=== PATIENT | male | born 1955 | race Caucasian/White ===

== ENCOUNTER 2018-11-16 08:58 | Inpatient (IN) | payer BC, OTHER ==
[2018-11-16] MEDS ORDERED: dilTIAZem HCL 125 MG/25 ML - 25 ML VIAL ONE ×2 (09:10→13:16)
--- NOTE | 2018-11-16 09:12 | PDOC ---
History of Present Illness <MarleeMariselaasher Chris - Last Filed: 11/16/18 12:34> - General History Source: Patient, EMS Exam Limitations: No Limitations - History of Present Illness Initial Comments: 11/16/18 09:35 63 year old male with PMH HTN, HLD, CAD (4 stents x15 years ago), DM BIBA to ED for acute SOB since this AM. Pt reported took his blood pressure medications this AM, but prior had not taken his blood pressure medications for x2 days, because "I was tired of taking them". Pt denied chest pain, fever, cough, lower extremity swelling. Pt was given 3 Nitro SL en route by EMS. <Josee Santacruz - Last Filed: 11/16/18 15:59> - General Stated Complaint: CHEST PAIN Time Seen by Provider: 11/16/18 09:11 Past History <Marisela Whalen - Last Filed: 11/16/18 12:34> <Josee Santacruz - Last Filed: 11/16/18 15:59> - Past Medical History Allergies/Adverse Reactions: Allergies Allergy/AdvReac Type Severity Reaction Status Date / Time No Known Allergies Allergy Verified 11/16/18 09:22 Home Medications: Ambulatory Orders Aspirin 81 mg PO DAILY 11/16/18 Clopidogrel Bisulfate [Plavix] 75 mg PO DAILY 11/16/18 Insulin Glargine,Hum.rec.anlog [Tou[place]nadette Solostar] 30 unit SQ DAILY 11/16/18 Olmesartan Medoxomil 5 mg PO DAILY 11/16/18 Rosuvastatin [Crestor -] 40 mg PO DAILY 11/16/18 Semaglutide [Ozempic] 0.5 mg SQ WEEKLY 11/16/18 metFORMIN HCL [Metformin HCl] 500 mg PO QID 11/16/18 Review of Systems - Review of Systems Able to Perform ROS?: Yes Comments:: 11/16/18 09:58 General: denied fever, chills, generalized weakness. HEENT: denied sore throat, rhinorrhea, ear pain. Heart: denied chest pain, palpitations, syncope, diaphoresis. Respiratory: admitted to shortness of breath. denied cough, sputum production, hemoptysis. Abdomen: denied abdominal pain, nausea, vomiting, diarrhea, constipation, blood in stool. : denied dysuria, increased urinary frequency, hematuria, urinary incontinence , flank pain. Back: denied back pain. Musculoskeletal: denied joint pain, muscle pain, joint swelling. Neurological: denied headache, dizziness, numbness, tingling, weakness. Skin: denied rash, laceration, abrasion. <Josee Santacruz - Last Filed: 11/16/18 15:59> *Physical Exam - Vital Signs Last Vital Signs Temp Pulse Resp BP Pulse Ox 97 F L 115 H 35 H 121/75 96 11/16/18 11:31 11/16/18 09:31 11/16/18 09:31 11/16/18 09:31 11/16/18 09:31 <Marisela Whalen - Last Filed: 11/16/18 12:34> - Physical Exam Comments: Constitutional: Well-nourished, Well-developed, appearing stated age. HEENT: head is normocephalic, atraumatic. EOMI. PERRLA. Neck: supple. Full ROM. Heart: regular rhythm. no murmurs, rubs or gallops. Lungs: bilateral breath sounds. bibasilar wheezing/crackles. increased work of breathing. no stridor. Abdomen: soft, nontender. normal bowel sounds. no rebound, guarding, masses. Extremities: peripheral pulses intact. no lower extremity edema. Neurological: CN 2-12 grossly intact. moves all four extremities. Psych: awake, alert, oriented x3. follows commands. answers questions appropriately. <Josee Santacruz - Last Filed: 11/16/18 15:59> ED Treatment Course - LABORATORY CBC & Chemistry Diagram: 11/16/18 09:19 11/16/18 09:19 - ADDITIONAL ORDERS Additional order review: Laboratory Results 11/16/18 11/16/18 11/16/18 11:30 10:20 09:19 PT with INR INR PTT (Actin FS) Anticoagulation Therapy No Result Required. Puncture Site Left radial ABG pH 7.36 ABG pCO2 at Pt Temp 47.4 H ABG pO2 at Pt Temp 157 H ABG HCO3 26.7 ABG O2 Sat (Measured) 99.5 H ABG O2 Content 20.3 ABG Base Excess 1.3 Greg Test Positive VBG pH 7.27 L POC VBG pCO2 64.9 H POC VBG pO2 50.5 H VBG HCO3 28.5 VBG O2 Sat (Mayte) 79.6 VBG Base Excess 0.1 Carboxyhemoglobin 1.3 Methemoglobin 0.3 O2 Delivery Device No Result Required. Oxygen Flow Rate No Vent Mode No Result Required. Vent Rate No Result Required. Mechanical Rate No Result Required. Pressure Support Vent No Result Required. Sodium Potassium Chloride Carbon Dioxide Anion Gap BUN Creatinine Est GFR (CKD-EPI)AfAm Est GFR (CKD-EPI)NonAf Random Glucose Lactic Acid 1.8 Calcium Magnesium Total Bilirubin AST ALT Alkaline Phosphatase Troponin I B-Natriuretic Peptide Total Protein Albumin TSH 11/16/18 11/16/18 09:19 09:19 PT with INR 11.20 INR 0.95 PTT (Actin FS) 29.2 Anticoagulation Therapy Puncture Site ABG pH ABG pCO2 at Pt Temp ABG pO2 at Pt Temp ABG HCO3 ABG O2 Sat (Measured) ABG O2 Content ABG Base Excess Greg Test VBG pH POC VBG pCO2 POC VBG pO2 VBG HCO3 VBG O2 Sat (Mayte) VBG Base Excess Carboxyhemoglobin Methemoglobin O2 Delivery Device Oxygen Flow Rate Vent Mode Vent Rate Mechanical Rate Pressure Support Vent Sodium 136 Potassium 4.2 Chloride 102 Carbon Dioxide 30 Anion Gap 4 L BUN 14.1 Creatinine 1.1 Est GFR (CKD-EPI)AfAm 81.79 Est GFR (CKD-EPI)NonAf 70.57 Random Glucose 328 H* Lactic Acid Calcium 9.0 Magnesium 2.1 Total Bilirubin 0.3 AST 29 ALT 56 Alkaline Phosphatase 152 H Troponin I < 0.02 B-Natriuretic Peptide 363.6 H Total Protein 7.5 Albumin 3.8 TSH 1.15 11/16/18 09:19 RBC 4.87 MCV 88.7 MCHC 33.4 RDW 13.8 MPV 9.5 Neutrophils % 77.6 Lymphocytes % 13.0 Monocytes % 7.4 Eosinophils % 1.6 Basophils % 0.4 - Medications Given in the ED: ED Medications Discontinued Medications Generic Name Dose Route Start Last Admin Trade Name Freq PRN Reason Stop Dose Admin Acetaminophen 1,000 mg 11/16/18 11:00 11/16/18 11:37 Ofirmev Injection - IVPB 11/16/18 11:01 1,000 mg ONCE ONE Administration Aspirin 162 mg 11/16/18 09:37 11/16/18 09:45 Asa - PO 11/16/18 09:38 Not Given ONCE ONE Diltiazem HCl 20 mg 11/16/18 09:13 11/16/18 09:22 Cardizem Injection - IVPUSH 11/16/18 09:14 20 mg ONCE ONE Administration Diltiazem HCl 60 mg 11/16/18 11:36 11/16/18 12:08 Cardizem - PO 11/16/18 11:37 60 mg ONCE ONE Administration Sodium Chloride 1,000 mls @ 1,000 mls/hr 11/16/18 11:01 11/16/18 11:08 Normal Saline - IV 11/16/18 12:00 1,000 mls/hr ASDIR STA Administration Ceftriaxone Sodium 1 gm/ 100 mls @ 200 mls/hr 11/16/18 11:03 11/16/18 12:00 Dextrose IVPB 11/16/18 11:32 200 mls/hr ONCE ONE Administration <Marisela Whalen - Last Filed: 11/16/18 12:34> - LABORATORY CBC & Chemistry Diagram: 11/16/18 09:19 11/16/18 09:19 <Josee Santacruz - Last Filed: 11/16/18 15:59> Medical Decision Making - Medical Decision Making 11/16/18 09:38 63 year old male with above PMH BIBA to ED for acute shortness of breath/hypoxia /tachycardia/hypertension. Pt was given SL Nitro X3. Initial Vital Signs Temp Pulse Resp BP Pulse Ox 97.4 F L 140 H 32 H 155/110 H 98 11/16/18 09:14 11/16/18 09:14 11/16/18 09:14 11/16/18 09:14 11/16/18 09:14 Afebrile. Tachycardic. Tachypnea. Hypertensive. No hypoxia on room air. EKG performed at 0900: rate 159, irregularly irregular rhythm, normal axis, inferior flipped Ts. No prior to compare. Pt was given Diltiazem 20 mg IV once. Vital Signs Temperature 97.4 F L 11/16/18 09:14 Pulse Rate 115 H 11/16/18 09:31 Respiratory Rate 35 H 11/16/18 09:31 Blood Pressure 121/75 11/16/18 09:31 O2 Sat by Pulse Oximetry (%) 96 11/16/18 09:31 Tachycardia improved. Work of breathing improved. Hypertension improved. BIPAP held for now. Labs ordered: CBC, CMP, TSH, troponin, BNP, coags Imaging ordered: CXR, CTA chest Medications ordered: ASA 162 mg PO chew once 11/16/18 09:54 CBC WBC 11.0 K/mm3 (4.0-10.0) H 11/16/18 09:19 RBC 4.87 M/mm3 (4.00-5.60) 11/16/18 09:19 Hgb 14.4 GM/dL (11.7-16.9) 11/16/18 09:19 Hct 43.2 % (35.4-49) 11/16/18 09:19 MCV 88.7 fl (80-96) 11/16/18 09:19 MCH 29.6 pg (25.7-33.7) 11/16/18 09:19 MCHC 33.4 g/dl (32.0-35.9) 11/16/18 09:19 RDW 13.8 % (11.9-15.9) 11/16/18 09:19 Plt Count 229 K/MM3 (134-434) 11/16/18 09:19 MPV 9.5 fl (7.5-11.1) 11/16/18 09:19 Absolute Neuts (auto) 8.5 K/mm3 (1.5-8.0) H 11/16/18 09:19 Neutrophils % 77.6 % (42.8-82.8) 11/16/18 09:19 Lymphocytes % 13.0 % (8-40) 11/16/18 09:19 Monocytes % 7.4 % (3.8-10.2) 11/16/18 09:19 Eosinophils % 1.6 % (0-4.5) 11/16/18 09:19 Basophils % 0.4 % (0-2.0) 11/16/18 09:19 Nucleated RBC % 0 % (0-0) 11/16/18 09:19 Leukocytosis with left shift. No anemia. VBG pH - 7.27 CO2 - 64.9 PO2 - 50.5 Respiratory acidosis. Labs ordered: ABG 11/16/18 09:57 Pt reassessed, work of breathing decreased. 11/16/18 10:23 CMP Sodium 136 mmol/L (136-145) 11/16/18 09:19 Potassium 4.2 mmol/L (3.5-5.1) 11/16/18 09:19 Chloride 102 mmol/L (98-107) 11/16/18 09:19 Carbon Dioxide 30 mmol/L (21-32) 11/16/18 09:19 Anion Gap 4 MMOL/L (8-16) L 11/16/18 09:19 BUN 14.1 mg/dL (7-18) 11/16/18 09:19 Creatinine 1.1 mg/dL (0.55-1.3) 11/16/18 09:19 Est GFR (CKD-EPI)AfAm 81.79 11/16/18 09:19 Est GFR (CKD-EPI)NonAf 70.57 11/16/18 09:19 Calcium 9.0 mg/dL (8.5-10.1) 11/16/18 09:19 Magnesium 2.1 mg/dL (1.8-2.4) 11/16/18 09:19 Total Bilirubin 0.3 mg/dL (0.2-1) 11/16/18 09:19 AST 29 U/L (15-37) 11/16/18 09:19 ALT 56 U/L (13-61) 11/16/18 09:19 Alkaline Phosphatase 152 U/L (45-117) H 11/16/18 09:19 Troponin I < 0.02 ng/ml (0.00-0.05) 11/16/18 09:19 B-Natriuretic Peptide 363.6 pg/ml (5-125) H 11/16/18 09:19 Total Protein 7.5 g/dl (6.4-8.2) 11/16/18 09:19 Albumin 3.8 g/dl (3.4-5.0) 11/16/18 09:19 TSH 1.15 uIU/ml (0.358-3.74) 11/16/18 09:19 No electrolyte abnormalities. No FREDDIE. No transamintiis. Troponin wnl Mild BNP elevation TSH wnl 11/16/18 10:[address] 11/16/18 10:37 ABG Results ABG pH 7.36 (7.35-7.45) 11/16/18 10:20 ABG pCO2 at Pt Temp 47.4 mmHg (35-45) H 11/16/18 10:20 ABG pO2 at Pt Temp 157 mmHg (80-105) H 11/16/18 10:20 ABG HCO3 26.7 mmol/L (22-27) 11/16/18 10:20 ABG O2 Sat (Measured) 99.5 % (95-98) H 11/16/18 10:20 ABG O2 Content 20.3 % vol (15-22) 11/16/18 10:20 ABG Base Excess 1.3 meq/l (-2-2) 11/16/18 10:20 No acidosis. 11/16/18 10:38 CXR report: EXAM#: TYPE/EXAM: RESULT: [id number] RAD/CHEST X-RAY PORTABLE* Chest : Hypoxia. Shortness of breath There are no prior studies for comparison. A single view of the chest reveals an elevated hemidiaphragm with right base atelectasis. There is a large heart with some prominence of central markings. The left lung is clear. The bones appear intact and the soft tissues are excessive. Correlation recommended. Reported By: Jules Bob MD 11/16/18 0950 11/16/18 11:13 CTA chest shows RLL pneumonia. -Pending official report Medications ordered: tylenol IV, normal saline 1000 cc bolus, Azithromyucin 500 mg IV once, Ceftriaxone 1g IV once Labs ordered: blood cultures 11/16/18 12:02 CTA chest report: [id number] CT/CHEST CTA Clinical history: Shortness of breath, hypoxia and tachycardia. Rule out pulmonary emboli in 63-year -old man. Comparison: Chest x-ray earlier today. Contiguous transaxial images were obtained from the lung apices to the bases with windows obtained for mediastinal and lung parenchymal detail. 3-D reconstructions were performed. No emboli were seen. No IV contrast was utilized. Sagittal and coronal reconstructions were performed. Mediastinum: Cardiomegaly with multichamber cardiac enlargement and elevated right diaphragm. Small mediastinal nodes. Mildly prominent hilar nodes. Suggest follow-up. Coronary artery calcification. Small pleural effusions. Lungs: Mild congestion with fissural thickening. Small infiltrates or atelectasis at the bases.. Bone: Osteopenia and degenerative changes. Cursory scanning of the upper abdomen: Small left renal cyst and accessory spleen. Small hiatal hernia. Impression: No emboli seen. Probable congestive changes with small effusions and fissural thickening. Other findings as above. Clinical correlation advised. Reported By: Jules Teran MD 11/16/18 1134 Pt still has wheezing at bases Medications ordered: duonebx1, diltiazem 125 mg PO once 11/16/18 12:17 Pt reported increased SOB and diaphoresis. Vital Signs Temperature 97 F L 11/16/18 11:31 Pulse Rate 112 H 11/16/18 12:14 Respiratory Rate 36 H 11/16/18 12:14 Blood Pressure 223/117 H 11/16/18 12:14 O2 Sat by Pulse Oximetry (%) 88 L 11/16/18 12:14 HTN worsening. Tachycardia persisting. Medications ordered: diltiazem 25 mg IV once BIPAP ordered 11/16/18 12:37 Vital Signs Temperature 97 F L 11/16/18 11:31 Pulse Rate 116 H 11/16/18 12:36 Respiratory Rate 38 H 11/16/18 12:36 Blood Pressure 206/111 H 11/16/18 12:36 O2 Sat by Pulse Oximetry (%) 97 11/16/18 12:36 Post-BIPAP hypoxia resolved. 11/16/18 15:19 Pt became acutely hypotensive 60s/40s. Pt was given 500 cc bolus and taken off of BIPAP with improvement of vital signs as below. Vital Signs Temperature 97 F L 11/16/18 11:31 Pulse Rate 115 H 11/16/18 15:19 Respiratory Rate 35 H 11/16/18 15:19 Blood Pressure 98/67 11/16/18 15:19 O2 Sat by Pulse Oximetry (%) 100 11/16/18 15:19 11/16/18 15:59 Vital Signs Temperature 97 F L 11/16/18 11:31 Pulse Rate 115 H 11/16/18 15:19 Respiratory Rate 35 H 11/16/18 15:19 Blood Pressure 125/58 L 11/16/18 15:25 O2 Sat by Pulse Oximetry (%) 100 11/16/18 15:19 Hypotension improving with IVF bolus. Pt still 100% on nonrebreather. <Josee Santacruz - Last Filed: 11/16/18 15:59> *DC/Admit/Observation/Transfer - Discharge Dispostion Decision to Admit order: Yes Decision to Admit order Date/Time: Decision to Admit Order Category Date Time Status Decision to Admit to Hospital Routine Admission 11/16/18 12:26 Ordered <Marisela Whalen - Last Filed: 11/16/18 12:34> <Josee Santacruz - Last Filed: 11/16/18 15:59> Diagnosis at time of Disposition: Shortness of breath, Atrial fibrillation with rapid ventricular response, Pneumonia, Pleural effusion, Acute respiratory failure - Discharge Dispostion Condition at time of disposition: Guarded
[2018-11-16] MEDS ORDERED: dilTIAZem HCL 50 MG/10 ML - 10 ML VIAL IVPUSH ONE ×2 (09:13→12:17)
[2018-11-16] MEDS ORDERED: ASPIRIN 81 MG CHEWABLE TABLETS PO ONE (09:37)
[2018-11-16 09:39] LABS: VENOUS PC02 64.9 mmHg (41-51); VENOUS PH 7.27 (7.31-7.41); VENOUS PO2 50.5 mmHg (30-40)
[2018-11-16 09:42] LABS: BASO % 0.4 % (0-2.0); EOS % 1.6 % (0-4.5); HEMATOCRIT 43.2 % (35.4-49); HEMOGLOBIN 14.4 GM/dL (11.7-16.9); MCH 29.6 pg (25.7-33.7); MCHC 33.4 g/dl (32.0-35.9); MEAN CELL VOLUME 88.7 fl (80-96); MEAN PLT VOLUME 9.5 fl (7.5-11.1); MONO % 7.4 % (3.8-10.2); NEUT % 77.6 % (42.8-82.8); PLATELET COUNT 229 K/MM3 (134-434); RBC 4.87 M/mm3 (4.00-5.60); RDW 13.8 % (11.9-15.9)
--- NOTE | 2018-11-16 09:42 | PDOC ---
Documentation entered by Juan Mccollum SCRIBE, acting as scribe for Marisela Whalen MD. Marisela Whalen MD: This documentation has been prepared by the Chun serna Joel, SCRIBE, under my direction and personally reviewed by me in its entirety. I confirm that the documentation accurately reflects all work, treatment, procedures, and medical decision making performed by me. Attending Attestation - Resident Resident Name: Reg Santacruzyla - ED Attending Attestation I have performed the following: I have examined & evaluated the patient, The case was reviewed & discussed with the resident, I agree w/resident's findings & plan - HPI HPI: 11/16/18 09:44 63 year old male with PMH HTN, HLD, CAD PCI (4 stents x15 years ago), DM BIBA to ED for acute SOB since waking up this AM. Pt reported took his blood pressure medications this AM, but prior had not taken his blood pressure medications for x1 week. [employer], received nitro x3 and ASA 325mg by EMS, supp O2 no h/o PE/DVT no h/o arrhythmias. no h/o COPD. 11/16/18 12:27 11/16/18 12:28 - Physicial Exam PE: 11/16/18 09:39 General: moderate respiratory distress. HEENT: NCAT, PERRL, EOMI, clear conjunctiva, anicteric, moist mucus membranes, clear oropharynx, no oral lesions.. Neck: neck supple, FROM. Resp: moderate respiratory distress, +tachypneic, +retractions and increased WOB, bilateral crackles at bases, with faint wheeze on left base. CVS: irregularly irregular, tachycardic, no murmurs, 2+ peripheral pulses throughout, no peripheral edema Abdomen: soft, NTND, no peritoneal signs. Back: nontender, normal inspection and ROM MSK: no edema, OCHOA x4, ROM intact. No clubbing or cyanosis. normal bulk and tone. Neuro: alert Skin: warm and well perfused, cap refill <2 sec, normal color 11/16/18 22:12 - Critical Care Time Total Critical Care Time: 60 (acute respiratory failure) Critical Care Statement: The care of this patient involved high complexity decision making to prevent further life threatening deterioration of the patient 's condition and/or to evaluate & treat vital organ system(s) failure or risk of failure. - Medical Decision Making 11/16/18 09:40 See HPI for details. Prior notes reviewed, including admissions, discharges and consultations. Vital signs reviewed, +hypertensive, borderline hypoxic low 90s on NRB, very tachy with Aflutter RVR 159 bpm, variable AV block. DDx SOB: ACS, PE, arrhythmia, PTX, CHF, pulmonary edema, pleurisy, pneumonia, viral syndrome. effusion. anemia, electrolyte/metabolic derangements. laboratory results and imaging reviewed, basic labs and lytes wnl, mild leukocytosis of 11k, lactic normal. glucose elevated, off dm meds x several days. CXR_no acute chest pathology, cardiomegaly Cardiac panel_neg trop, bnp indeterminate range EKG Aflutter 160 bpm, RVR, variable block, no interval abnormalities, narrow QRS , ST and T wave segments and morphology normal. Nonspecific T wave abnormalities ED course -interventions: IV fluids, diltiazem for rate control. ABX. CTA chest with RLL infiltrate and bilateral pleural effusions no PE. persistent tachy, titrated off O2, maintaining sats now ABG normal, no acidosis or CO2 retention\ pna to be treated with ceftriaxone and azithromycin. CAP coverage- repeat EKG with better rate control, still Aflutter, more regular rhythm, rate down to 110bpm which is appropriate. already received ASA [employer] insulin given for hyperglycemia, off meds/regimen last several days. 11/16/18 12:28 - clinical reeval, increased WOB /SOB and tachy/tachypneic. SpO2 94% on NRB/Venti mask - attempted titrating down, no improvement. BIpap initiated for WOB spoke and called for admit to Dr Alegria, cards cs per request for Dr Rider 11/16/18 14:33 - while on BIpap, improved respiratory status, stayed on for 2 hours. then due to PPV, hypotension. titrated of bipap and tolerating placed on NRB, transition to venti mask BP improved 120/80s after taken off bipap feels more improved admit for pna, new onset Afib/flutter appearance, rate controlled. acute respiratory failure telemetry 11/16/18 22:13 Heart Score/ECG Review #1 ECG reviewed & interpreted by me at: 09:00 Compared to previous ECG there are: Changes noted 11/16/18 09:41 EKG Aflutter 160 bpm, RVR, variable block, no interval abnormalities, narrow QRS , ST and T wave segments and morphology normal. Nonspecific T wave abnormalities - ECG Intrepretation Rhythm: Irregularly Irregular Procedures - Bedside Ultrasound Bedside Ultrasound: Cardiac Remarks: 11/16/18 09:46 POCUS echo and thoracic exam performed and documented/saved, indication includes dyspnea. views obtained (PSLA, PSS, A4, SX, IVC, bilateral lung gonzalez) . Findings include normal EF on visual estimation, no pericardial effusion, primarily B lines, plethoric IVC with no collapse. Normal aortic root <4cm. RV= LV. Impression: borderline RV=LV, alveolar interstitialy syndrome, pleural effusion
[2018-11-16] MEDS ORDERED: ASPIRIN 81 MG CHEWABLE TABLETS ONE ×2 (09:43→16:30)
[2018-11-16 09:54] LABS: INR 0.95 (0.83-1.09); PROTHROMBIN TIME (PATIENT) 11.2 SEC (9.7-13.0)
[2018-11-16 09:57] LABS: ACTIVATED PTT 29.2 SECONDS (25.2-36.5)
[2018-11-16 10:16] LABS: ALBUMIN 3.8 g/dl (3.4-5.0); ALK PHOS 152 U/L (45-117); ANION GAP 4 MMOL/L (8-16); BILIRUBIN,TOTAL 0.3 mg/dL (0.2-1); BLOOD UREA NITROGEN 14.1 mg/dL (7-18); CHLORIDE 102 mmol/L (98-107); CO2 30 mmol/L (21-32); CREATININE 1.1 mg/dL (0.55-1.3); MAGNESIUM 2.1 mg/dL (1.8-2.4); N-TERMINAL BNP 363.6 pg/ml (5-125); POTASSIUM 4.2 mmol/L (3.5-5.1); SGOT/AST 29 U/L (15-37); SGPT/ALT 56 U/L (13-61); SODIUM 136 mmol/L (136-145); TOT PROT 7.5 g/dl (6.4-8.2)
[2018-11-16 10:31] LABS: ARTERIAL BLOOD GAS pH 7.36 (7.35-7.45)
[2018-11-16 10:32] LABS: ARTERIAL BLD GAS O2 SATURATION 99.5 % (95-98); ARTERIAL BLOOD GAS BASE EXCESS 1.3 meq/l (-2-2); ARTERIAL BLOOD GAS PCO2 47.4 mmHg (35-45); ARTERIAL BLOOD GAS PO2 157 mmHg (80-105); CARBOXYHEMOGLOBIN 1.3 % (0-2)
[2018-11-16 10:33] LABS: ALLENS TEST POSITIVE
[2018-11-16 10:41] LABS: GLUCOSE,RANDOM 328 mg/dL (74-106)
[2018-11-16] MEDS ORDERED: ACETAMINOPHEN 1000 MG/100 ML VIAL (NON FORMULARY) IVPB ONE (11:00)
[2018-11-16] MEDS ORDERED: SODIUM CHLORIDE 1,000 ML IV STA (11:01)
[2018-11-16] MEDS ORDERED: ACETAMINOPHEN INJECTION 100 ML IVPB ONE (11:02)
[2018-11-16] MEDS ORDERED: AZITHROMYCIN IVPB 500 MG in DEXTROSE 5%-WATER - 250 ML IVPB ONE (11:03)
[2018-11-16] MEDS ORDERED: CEFTRIAXONE 1 GM in DEXTROSE 5%-WATER - 100 ML IVPB ONE (11:03)
[2018-11-16] MEDS ORDERED: dilTIAZem HCL 60 MG TABLET (FP) PO ONE (11:36)
[2018-11-16] MEDS ORDERED: dilTIAZem HCL 60 MG TABLET (FP) ONE (12:01)
[2018-11-16] MEDS ORDERED: ALBUTEROL SO4 2.5/IPRATROPIUM 0.5 INH SOL 3 ML VIAL.NEB. NEB ONE (12:04)
[2018-11-16] MEDS ORDERED: CEFTRIAXONE 1 GM/50 ML BAG ONE (12:13)
[2018-11-16] MEDS ORDERED: INSULIN (NOVOLOG) ASPART 100 UNITS/ML 10ML VIAL SQ ONE (12:33)
[2018-11-16] MEDS ORDERED: AZITHROMYCIN IVPB 500 MG/250 ML BAG IVPB ONE (13:15)
[2018-11-16] MEDS ORDERED: INSULIN (NOVOLOG) ASPART 100 UNITS/ML 10ML VIAL ONE ×2 (13:16→16:31)
[2018-11-16] MEDS ORDERED: LACTATED RINGERS SOLUTION 1000 ML INFUS.BAG IV ONE (13:46)
[2018-11-16] MEDS ORDERED: SODIUM CHLORIDE 0.9% 500 ML INFUS.BAG IV ONE (13:53)
[2018-11-16] MEDS ORDERED: SODIUM CHLORIDE 0.9% 1000 ML INFUS.BAG IV ONE (15:11)
[2018-11-16] MEDS ORDERED: CLOPIDOGREL BISULFATE 75 MG TABLET (FP) PO SCH (16:00)
[2018-11-16] MEDS ORDERED: ALBUTEROL SO4 2.5/IPRATROPIUM 0.5 INH SOL 3 ML VIAL.NEB. NEB PRN (16:01)
[2018-11-16] MEDS ORDERED: CLOPIDOGREL BISULFATE 75 MG TABLET (FP) ONE (16:30)
[2018-11-16] MEDS: ASPIRIN 81 MG CHEWABLE TABLETS PO SCH (16:35)
[2018-11-16] MEDS: INSULIN SLIDING SCALE (NOVOLOG) 1 VIAL SQ SCH ×2 (16:35→22:34)
--- NOTE | 2018-11-16 18:50 | CON.CARD ---
Consult Consult Specialty:: cardiology Reason for Consultation:: atrial flutter; tachycardia; SOB; HTN - History of Present Illness Chief Complaint: Pt A&OX3; feels much better than when came to ER at 8am, but still dyspneic History of Present Illness: 63 year old white male with PMH HTN, HLD, CAD PCI (4 stents in 2009 at [facility] ; denies hx [place]), DM, overweight, heart murmur, BIBA to ED for acute SOB since waking up this AM. Pt reported took his blood pressure medications at 3:00 am ( "nine pills"), but prior had not taken his blood pressure medications for 3 days. After taking them, he felt weak. Priot to admission, pt received nitro x3 and ASA 325mg by EMS, supp O2 no h/o PE/DVT no h/o arrhythmias. no h/o COPD. - History Source History Provided By: Patient, Medical Record Limitations to Obtaining History: No Limitations - Past Medical History Cardio/Vascular: Yes: AFIB (? new-onset), HTN, Hyperlipdemia, Murmur. No: [place] Pulmonary: Yes: Sleep Apnea Renal/: No: Renal Failure - Past Surgical History Past Surgical History: Yes: Stent (coronart arter stents x 4 in 2009) - Alcohol/Substance Use Hx Alcohol Use: Yes - Smoking History Smoking history: Former smoker Have you smoked in the past 12 months: No If you are a former smoker, when did you quit?: 35 Home Medications - Allergies Allergies/Adverse Reactions: Allergies Allergy/AdvReac Type Severity Reaction Status Date / Time No Known Allergies Allergy Verified 11/16/18 09:22 - Home Medications Home Medications: Ambulatory Orders Aspirin 81 mg PO DAILY 11/16/18 Clopidogrel Bisulfate [Plavix] 75 mg PO DAILY 11/16/18 Insulin Glargine,Hum.rec.anlog [Toujeo Solostar] 30 unit SQ DAILY 11/16/18 Olmesartan Medoxomil 5 mg PO DAILY 11/16/18 Rosuvastatin [Crestor -] 40 mg PO DAILY 11/16/18 Semaglutide [Ozempic] 0.5 mg SQ WEEKLY 11/16/18 metFORMIN HCL [Metformin HCl] 500 mg PO QID 11/16/18 Family Disease History - Family Disease History Family History: Denies Review of Systems - Review of Systems Constitutional: reports: No Symptoms Eyes: reports: No Symptoms HENT: reports: No Symptoms Neck: reports: No Symptoms Cardiovascular: reports: Shortness of Breath. denies: Chest Pain Respiratory: reports: SOB Gastrointestinal: reports: No Symptoms Genitourinary: reports: No Symptoms Breasts: reports: No Symptoms Reported Musculoskeletal: reports: No Symptoms Integumentary: reports: No Symptoms Neurological: reports: Weakness Endocrine: reports: No Symptoms Hematology/Lymphatic: reports: No Symptoms Psychiatric: reports: No Symptoms - Risk Factors Known Risk Factors: Yes: Age, Diabetes Mellitus, Gender Vital Signs: Vital Signs Temperature 97 F L 11/16/18 11:31 Pulse Rate 91 H 11/16/18 18:06 Respiratory Rate 20 11/16/18 18:06 Blood Pressure 135/88 11/16/18 18:06 O2 Sat by Pulse Oximetry (%) 100 11/16/18 18:06 Constitutional: Yes: Well Nourished, No Distress, Calm Eyes: Yes: WNL, Conjunctiva Clear, EOM Intact HENT: Yes: WNL, Atraumatic, Normocephalic Neck: Yes: WNL, Supple, Trachea Midline Respiratory: Yes: WNL, Regular, CTA Bilaterally Gastrointestinal: Yes: WNL, Normal Bowel Sounds Renal/: Yes: WNL Cardiovascular: Yes: WNL, Regular Rate and Rhythm JVD: No Carotid Bruit: No PMI: Non-Displaced Heart Sounds: Yes: S1, S2, S4 Murmur: Yes: Systolic Murmur, Grade 3 Musculoskeletal: Yes: WNL Extremities: Yes: WNL Edema: No Peripheral Pulses WNL: Yes Integumentary: Yes: WNL Neurological: Yes: WNL, Alert, Oriented ...Motor Strength: WNL Psychiatric: Yes: WNL, Alert, Oriented - Other Data Labs, Other Data: CBC, BMP 11/16/18 09:19 11/16/18 09:19 INR, PTT INR 0.95 (0.83-1.09) 11/16/18 09:19 Troponin, BNP 11/16/18 11/16/18 09:19 16:45 Troponin I < 0.02 0.03 B-Natriuretic Peptide 363.6 H Troponin, BNP 11/16/18 11/16/18 09:19 16:45 Troponin I < 0.02 0.03 B-Natriuretic Peptide 363.6 H Prior Cardiac Procedures: PTCA with Stent Imaging - Results Chest X-ray: Image Reviewed Cat Scan: Image Reviewed EKG: Image Reviewed Problem List - Problems (1) Obesity Code(s): E66.9 - OBESITY, UNSPECIFIED (2) Atrial flutter with rapid ventricular response Assessment/Plan: On diltiazem in ER for HR control (give 30 mg PO q 6 hours, with serial BP and HR f/u); change to metoprolol or carvedilol if LVEF is significantly reduced on ECHO. F/u EKG with current controlled VR. On IV heparin; for decision on systemic PO anticoagulation (preferably DOAC) in am. If started, consider stopping one of the antiplatelets (no new stents for several years; reportedly had normal stress test 6 months ago as outpatient). TNI 0.02; f/u serially. On antibiotics for PNA. ECHO for LVEF, chamber sizes, valve status. F/u BUN/Cr, electrolytes, Is and Os, daily weight. Code(s): I48.92 - UNSPECIFIED ATRIAL FLUTTER (3) Diabetes Code(s): E11.9 - TYPE 2 DIABETES MELLITUS WITHOUT COMPLICATIONS (4) HTN (hypertension) Assessment/Plan: On valsartan. AV conduction noy for HR control, BP (reportedly on diltiazem in ER; give PO 30 mg q6; follow HR and BP serially). Code(s): I10 - ESSENTIAL (PRIMARY) HYPERTENSION (5) Sleep apnea Assessment/Plan: r/o with sleep studies when stable Code(s): G47.30 - SLEEP APNEA, UNSPECIFIED (6) H/O heart artery stent Code(s): Z95.5 - PRESENCE OF CORONARY ANGIOPLASTY IMPLANT AND GRAFT (7) Hyperlipidemia Assessment/Plan: On rosuvastatin. Code(s): E78.5 - HYPERLIPIDEMIA, UNSPECIFIED
--- NOTE | 2018-11-16 20:04 | PDOC ---
*Physical Exam - Vital Signs Last Vital Signs Temp Pulse Resp BP Pulse Ox 97 F L 91 H 20 135/88 100 11/16/18 11:31 11/16/18 18:06 11/16/18 18:06 11/16/18 18:06 11/16/18 18:06 - Physical Exam Comments: 11/16/18 20:01 Patient's care was endorsed to me by Dr. Santacruz. Patient is admitted with new- onset A-flutter, respiratory failure, was managed on BiPAP now feels much better. I have spoken with Dr. Rider who saw the patient in the ED, requests to DC the clopidogrel for now, as patient has been given heparin. I have DC'ed the clopidogrel order. Also requests repeat EKG and I have placed this order and informed the tech, will send him the EKG when completed. Heart Score/ECG Review #1 11/16/18 20:28 (REPEAT) Sinus rhythm, rate 81, normal axis and intervals, one PVC, isolated TWI in III, otherwise no ischemic ST-T changes ED Treatment Course - LABORATORY CBC & Chemistry Diagram: 11/16/18 09:19 11/16/18 09:19 - ADDITIONAL ORDERS Additional order review: Laboratory Results 11/16/18 11/16/18 11/16/18 11:30 10:20 09:19 PT with INR INR PTT (Actin FS) Anticoagulation Therapy No Result Required. Puncture Site Left radial ABG pH 7.36 ABG pCO2 at Pt Temp 47.4 H ABG pO2 at Pt Temp 157 H ABG HCO3 26.7 ABG O2 Sat (Measured) 99.5 H ABG O2 Content 20.3 ABG Base Excess 1.3 Greg Test Positive VBG pH 7.27 L POC VBG pCO2 64.9 H POC VBG pO2 50.5 H VBG HCO3 28.5 VBG O2 Sat (Mayte) 79.6 VBG Base Excess 0.1 Carboxyhemoglobin 1.3 Methemoglobin 0.3 O2 Delivery Device No Result Required. Oxygen Flow Rate No Vent Mode No Result Required. Vent Rate No Result Required. Mechanical Rate No Result Required. Pressure Support Vent No Result Required. Sodium Potassium Chloride Carbon Dioxide Anion Gap BUN Creatinine Est GFR (CKD-EPI)AfAm Est GFR (CKD-EPI)NonAf Random Glucose Lactic Acid 1.8 Calcium Magnesium Total Bilirubin AST ALT Alkaline Phosphatase Troponin I B-Natriuretic Peptide Total Protein Albumin TSH 11/16/18 11/16/18 09:19 09:19 PT with INR 11.20 INR 0.95 PTT (Actin FS) 29.2 Anticoagulation Therapy Puncture Site ABG pH ABG pCO2 at Pt Temp ABG pO2 at Pt Temp ABG HCO3 ABG O2 Sat (Measured) ABG O2 Content ABG Base Excess Greg Test VBG pH POC VBG pCO2 POC VBG pO2 VBG HCO3 VBG O2 Sat (Mayte) VBG Base Excess Carboxyhemoglobin Methemoglobin O2 Delivery Device Oxygen Flow Rate Vent Mode Vent Rate Mechanical Rate Pressure Support Vent Sodium 136 Potassium 4.2 Chloride 102 Carbon Dioxide 30 Anion Gap 4 L BUN 14.1 Creatinine 1.1 Est GFR (CKD-EPI)AfAm 81.79 Est GFR (CKD-EPI)NonAf 70.57 Random Glucose 328 H* Lactic Acid Calcium 9.0 Magnesium 2.1 Total Bilirubin 0.3 AST 29 ALT 56 Alkaline Phosphatase 152 H Troponin I < 0.02 B-Natriuretic Peptide 363.6 H Total Protein 7.5 Albumin 3.8 TSH 1.15 11/16/18 09:19 RBC 4.87 MCV 88.7 MCHC 33.4 RDW 13.8 MPV 9.5 Neutrophils % 77.6 Lymphocytes % 13.0 Monocytes % 7.4 Eosinophils % 1.6 Basophils % 0.4 - Medications Given in the ED: ED Medications Discontinued Medications Generic Name Dose Route Start Last Admin Trade Name Freq PRN Reason Stop Dose Admin Acetaminophen 1,000 mg 11/16/18 11:00 11/16/18 11:37 Ofirmev Injection - IVPB 11/16/18 11:01 1,000 mg ONCE ONE Administration Albuterol/Ipratropium 1 amp 11/16/18 12:04 11/16/18 13:12 Duoneb - NEB 11/16/18 12:05 1 amp ONCE ONE Administration Aspirin 162 mg 11/16/18 09:37 11/16/18 09:45 Asa - PO 11/16/18 09:38 Not Given ONCE ONE Clopidogrel Bisulfate 75 mg 11/16/18 16:00 11/16/18 16:35 Plavix - PO Not Given DAILY ADALID Diltiazem HCl 20 mg 11/16/18 09:13 11/16/18 09:22 Cardizem Injection - IVPUSH 11/16/18 09:14 20 mg ONCE ONE Administration Diltiazem HCl 60 mg 11/16/18 11:36 11/16/18 12:08 Cardizem - PO 11/16/18 11:37 60 mg ONCE ONE Administration Diltiazem HCl 25 mg 11/16/18 12:17 11/16/18 13:26 Cardizem Injection - IVPUSH 11/16/18 12:18 25 mg ONCE ONE Administration Sodium Chloride 1,000 mls @ 1,000 mls/hr 11/16/18 11:01 11/16/18 11:08 Normal Saline - IV 11/16/18 12:00 1,000 mls/hr ASDIR STA Administration Azithromycin 500 mg/ Dextrose 250 mls @ 250 mls/hr 11/16/18 11:03 11/16/18 12 :55 IVPB 11/16/18 12:02 250 mls/hr ONCE ONE Administration Ceftriaxone Sodium 1 gm/ 100 mls @ 200 mls/hr 11/16/18 11:03 11/16/18 12:00 Dextrose IVPB 11/16/18 11:32 200 mls/hr ONCE ONE Administration Insulin Aspart 10 units 11/16/18 12:33 11/16/18 13:26 Novolog Vial SQ 11/16/18 12:34 10 unit ONCE ONE Administration Protocol Lactated Ringer's 500 ml 11/16/18 13:46 11/16/18 13:54 Lactated Ringers Solution IV 11/16/18 13:47 Not Given ONCE ONE Sodium Chloride 500 ml 11/16/18 13:53 11/16/18 13:54 Normal Saline - IV 11/16/18 13:54 500 ml ONCE ONE Administration Sodium Chloride 1,000 ml 11/16/18 15:11 11/16/18 15:11 Normal Saline - IV 11/16/18 15:12 1,000 ml NOW ONE Administration *DC/Admit/Observation/Transfer Diagnosis at time of Disposition: Shortness of breath, Atrial fibrillation with rapid ventricular response, Pneumonia, Pleural effusion, Acute respiratory failure - Discharge Dispostion Condition at time of disposition: Guarded - Referrals - Patient Instructions - Post Discharge Activity
[2018-11-16] MEDS: HEPARIN NA (PORCINE) 5,000 UNITS/ML 1ML VIAL SQ SCH (22:35)
--- NOTE | 2018-11-16 23:15 | HP ---
Admitting History and Physical - Past Medical History Cardiovascular: Yes: AFIB (? new-onset), HTN, Hyperlipdemia, Murmur. No: NM Pulmonary: Yes: Sleep Apnea Renal/: No: Renal Failure - Past Surgical History Past Surgical History: Yes: Stent (coronart arter stents x 4 in 2010) - Smoking History Smoking history: Former smoker Have you smoked in the past 12 months: No If you are a former smoker, when did you quit?: 35 - Alcohol/Substance Use Hx Alcohol Use: Yes Home Medications - Allergies Allergies/Adverse Reactions: Allergies Allergy/AdvReac Type Severity Reaction Status Date / Time No Known Allergies Allergy Verified 11/16/18 09:22 - Home Medications Home Medications: Ambulatory Orders Aspirin 81 mg PO DAILY 11/16/18 Clopidogrel Bisulfate [Plavix] 75 mg PO DAILY 11/16/18 Insulin Glargine,Hum.rec.anlog [Toujeo Solostar] 30 unit SQ DAILY 11/16/18 Olmesartan Medoxomil 5 mg PO DAILY 11/16/18 Rosuvastatin [Crestor -] 40 mg PO DAILY 11/16/18 Semaglutide [Ozempic] 0.5 mg SQ WEEKLY 11/16/18 metFORMIN HCL [Metformin HCl] 500 mg PO QID 11/16/18 Physical Examination Vital Signs: Vital Signs Temperature 97 F L 11/16/18 11:31 Pulse Rate 76 11/16/18 20:00 Respiratory Rate 22 H 11/16/18 20:00 Blood Pressure 130/82 11/16/18 20:00 O2 Sat by Pulse Oximetry (%) 93 L 11/16/18 20:00 Labs: CBC, BMP 11/16/18 09:19 11/16/18 09:19
[2018-11-17 01:38] VITALS: BMI 35.6
[2018-11-17] MEDS ORDERED: diphenhydrAMINE HCL 25 MG CAPSULE (FP) PO ONE (02:30)
[2018-11-17] MEDS: INSULIN SLIDING SCALE (NOVOLOG) 1 VIAL SQ SCH ×4 (06:24→23:20)
[2018-11-17 06:47] LABS: BASO % 0.2 % (0-2.0); EOS % 0.8 % (0-4.5); HEMATOCRIT 42.4 % (35.4-49); HEMOGLOBIN 14.2 GM/dL (11.7-16.9); LYMPH % 9.7 % (8-40); MCH 29.5 pg (25.7-33.7); MCHC 33.6 g/dl (32.0-35.9); MEAN PLT VOLUME 9.6 fl (7.5-11.1); MONO % 7.9 % (3.8-10.2); NEUT % 81.4 % (42.8-82.8); PLATELET COUNT 216 K/MM3 (134-434); RBC 4.82 M/mm3 (4.00-5.60); RDW 13.7 % (11.9-15.9); WHITE BLOOD COUNT 15.1 K/mm3 (4.0-10.0)
[2018-11-17 07:31] LABS: ALBUMIN 3.6 g/dl (3.4-5.0); BILIRUBIN,TOTAL 0.6 mg/dL (0.2-1); BLOOD UREA NITROGEN 10.3 mg/dL (7-18); CALCIUM 9.4 mg/dL (8.5-10.1); POTASSIUM 4.4 mmol/L (3.5-5.1); TOT PROT 7.1 g/dl (6.4-8.2)
[2018-11-17] MEDS ORDERED: cefTRIAXone SODIUM 1 GM VIAL ONE (08:08)
[2018-11-17] MEDS ORDERED: DEXTROSE 5%-WATER - 50 ML IVPB ONE (08:08)
[2018-11-17] MEDS: ASPIRIN 81 MG CHEWABLE TABLETS PO SCH (09:54)
[2018-11-17] MEDS: VALSARTAN 40 MG TABLET (FP) PO SCH (09:54)
[2018-11-17] MEDS: HEPARIN NA (PORCINE) 5,000 UNITS/ML 1ML VIAL SQ SCH (09:54)
[2018-11-17] MEDS: CEFTRIAXONE 1 GM in DEXTROSE 5%-WATER - 50 ML IVPB SCH (10:00)
[2018-11-17] MEDS: AZITHROMYCIN IVPB 250 MG in DEXTROSE 5%-WATER - 250 ML IVPB SCH (10:02)
[2018-11-17] MEDS ORDERED: SODIUM POLYSTYRENE SULFONATE 15 GM/60 ML BOTTLE ONE (10:29)
--- NOTE | 2018-11-17 10:34 | EKG ---
Test Reason : Blood Pressure : / mmHG Vent. Rate : 081 BPM Atrial Rate : 081 BPM P-R Int : 160 ms QRS Dur : 086 ms QT Int : 388 ms P-R-T Axes : 015 006 007 degrees QTc Int : 450 ms SINUS RHYTHM WITH OCCASIONAL PREMATURE VENTRICULAR COMPLEXES OTHERWISE NORMAL ECG Confirmed by Kirk Newell MD ([id number]) on 11/17/2018 10:34:46 AM Referred By: Confirmed By:Kirk Newell MD
--- NOTE | 2018-11-17 10:36 | EKG ---
Test Reason : Blood Pressure : / mmHG Vent. Rate : 159 BPM Atrial Rate : 267 BPM P-R Int : 000 ms QRS Dur : 090 ms QT Int : 316 ms P-R-T Axes : -59 009 047 degrees QTc Int : 514 ms ATRIAL FLUTTER WITH VARIABLE A-V BLOCK INFERIOR INFARCT , AGE UNDETERMINED POSSIBLE ANTERIOR INFARCT , AGE UNDETERMINED ABNORMAL ECG NO PREVIOUS ECGS AVAILABLE Confirmed by Kirk Newell MD ([id number]) on 11/17/2018 10:36:22 AM Referred By: Confirmed By:Kirk Newell MD
--- NOTE | 2018-11-17 10:36 | EKG ---
Test Reason : Blood Pressure : / mmHG Vent. Rate : 110 BPM Atrial Rate : 220 BPM P-R Int : 000 ms QRS Dur : 086 ms QT Int : 330 ms P-R-T Axes : -84 -27 030 degrees QTc Int : 446 ms ATRIAL FLUTTER WITH 2:1 A-V CONDUCTION POSSIBLE ANTERIOR INFARCT (CITED ON OR BEFORE 16-NOV-2018) ABNORMAL ECG Confirmed by Kirk Newell MD ([id number]) on 11/17/2018 10:36:15 AM Referred By: Confirmed By:Kirk Newell MD
--- NOTE | 2018-11-17 12:29 | PN ---
Progress Note (short form) - Note Progress Note: s: feels better today, no chest pain, palps, dizziness, dyspnea tele: sinus Current Medications Albuterol/Ipratropium (Duoneb -) 1 amp NEB Q6H PRN PRN Reason: SHORTNESS OF BREATH Aspirin (Asa -) 81 mg PO DAILY [facility] Last Admin: 11/17/18 09:54 Dose: 81 mg Heparin Sodium (Porcine) (Heparin -) 5,000 unit SQ BID [facility] Last Admin: 11/17/18 09:54 Dose: 5,000 unit Azithromycin 250 mg/ Dextrose 250 mls @ 250 mls/hr IVPB DAILY [facility] Last Admin: 11/17/18 10:02 Dose: 250 mls/hr Ceftriaxone Sodium 1 gm/ (Dextrose) 50 mls @ 100 mls/hr IVPB DAILY [facility]; Protocol Last Admin: 11/17/18 10:00 Dose: 100 mls/hr Insulin Aspart (Novolog Vial Sliding Scale -) 1 vial SQ ACHS [facility]; Protocol Last Admin: 11/17/18 06:24 Dose: 4 unit Rosuvastatin Calcium (Crestor -) 40 mg PO HS [facility] Valsartan (Diovan -) 40 mg PO DAILY [facility] Last Admin: 11/17/18 09:54 Dose: 40 mg Vital Signs Period Temp Pulse Resp BP Sys/Lama Pulse Ox Last 24 Hr 97.7 F-98.9 F 76-116 20-98 80-206/48-111 93-100 Constitutional: Yes: Well Nourished, No Distress, Calm Eyes: Yes: Conjunctiva Clear, EOM Intact HENT: Yes: Atraumatic, Normocephalic Neck: Yes: Supple, Trachea Midline Respiratory: Yes: WNL, Regular, CTA Bilaterally Gastrointestinal: Yes: soft, nt nd, Normal Bowel Sounds Cardiovascular: Yes: Regular Rate and Rhythm, nl s1 s2 JVD: No Carotid Bruit: No PMI: Non-Displaced Murmur: Yes: Systolic Murmur, Grade 3 Edema: No Peripheral Pulses WNL: Yes Integumentary: no jaundice, diaphoresis Neurological: Yes: Alert, Oriented Psychiatric: not agitated Prior Cardiac Procedures: PTCA with Stent tele: sinus EKG: aflutter rate 159 bpm Atrial flutter with RVR - now in sinus, rate controlled - echo pending - start metoprolol succinate 25 mg daily - AC indicated, start eliquis 5 mg BID, will dc aspirin and continue plavix (on DAPT as outpatient, last stent 10+ years ago) CAD - cont plavix, statin, dc aspirin PNA - manage per primary DM - manage per primary HTN - cont current meds HTN - bp stable, cont current meds
[2018-11-17] MEDS ORDERED: metoPROLOL SUCCINATE 25 MG TAB.SR.24H (FP) PO SCH (12:45)
--- NOTE | 2018-11-17 12:47 | ECHO ---
Name: MAGDALENO GINGER Exam:Adult Echocardiogram Study Date: 11/17/2018 08:23 AM Age: 63 yrs Reason For Study: SOB Height: 70 in Weight: 220 lb BSA: 2.2 m2 MMode/2D Measurements & Calculations IVSd: 1.2 cm Ao root diam: 3.0 cm LVIDd: 4.7 cm LA dimension: 4.1 cm LVIDs: 2.6 cm LVPWd: 1.2 cm EDV(Teich): 104.1 ml LVOT diam: 2.0 cm ESV(Teich): 24.5 ml LAV (MOD-bp): 94.6 ml Doppler Measurements & Calculations MV E max franklin: 180.0 cm/sec Ao V2 max: 379.0 cm/sec MV A max franklin: 132.0 cm/sec Ao max P.5 mmHg MV E/A: 1.4 Ao V2 mean: 258.0 cm/sec MV dec time: 0.16 sec Ao mean P.0 mmHg Ao V2 VTI: 68.5 cm ROBERTO(I,D): 0.78 cm2 ROBERTO(V,D): 0.79 cm2 LV V1 max P.9 mmHg MR max franklin: 566.5 cm/sec LV V1 mean P.0 mmHg MR max P.6 mmHg LV V1 max: 97.6 cm/sec LV V1 mean: 67.5 cm/sec LV V1 VTI: 17.6 cm SV(LVOT): 53.7 ml TR max franklin: 386.3 cm/sec TR max P.8 mmHg Med Peak E' Franklin: 7.0 cm/sec Med E/e': 25.9 Lat Peak E' Franklin: 4.9 cm/sec Lat E/e': 36.8 Procedure The study was technically difficult with many images being suboptimal in quality. Left Ventricle The left ventricle is normal in size. There is borderline concentric left ventricular hypertrophy. Th e left ventricular ejection fraction is normal. Ejection Fraction = 60%. E/A reversal consistent with but no t diagnostic of poor LV compliance. The left ventricular wall motion is normal. Right Ventricle The right ventricle is normal in size and function. Atria The left atrium is mildly dilated. Right atrial size is normal. Mitral Valve There is mild mitral annular calcification. There is trace mitral regurgitation. Tricuspid Valve The tricuspid valve is normal in structure and function. There is Trace to mild tricuspid regurgitati on. Right ventricular systolic pressure is elevated at 60 mmhg. There is severe pulmonary hypertension. Aortic Valve There is moderate to severe aortic valve thickening. Moderate to severe valvular aortic stenosis. Aor tic mean pressure gradient= 31. The calculated aortic valve area using the continuity equation is 0.79 cm2. Pulmonic Valve The pulmonic valve is not well visualized. Great Vessels The aortic root is normal size. Pericardium/Pleura There is no pericardial effusion. There is no pleural effusion. Interpretation Summary The study was technically difficult with many images being suboptimal in quality. The left ventricle is normal in size. There is borderline concentric left ventricular hypertrophy. The left ventricular ejection fraction is normal. Ejection Fraction = 60%. The right ventricle is normal in size and function. The left atrium is mildly dilated. There is mild mitral annular calcification. There is trace mitral regurgitation. There is Trace to mild tricuspid regurgitation. Right ventricular systolic pressure is elevated at 60 mmhg. There is severe pulmonary hypertension. Moderate to severe valvular aortic stenosis. Aortic mean pressure gradient= 31 The calculated aortic valve area using the continuity equation is 0.79 cm2. MD Kirk Newell 11/17/2018 12:46 PM
--- NOTE | 2018-11-17 13:22 | PN ---
Progress Note (short form) - Note Progress Note: PULMONARY CONSULTATION DICTATED 11/17/18 IMP ACUTE HYPOXEMIC/HYPERCAPNEIC RESPIRATORY FAILURE ACUTE ON CHRONIC DIASTOLIC HF AFLUTTER WITH RVR ? PNEUMONIA ASHD S/P STENTS HTN DM SEVERE PULMONARY HTN OSAS PLAN RATE CONTROL PER CARDIOLOGY O2 AC F/U CHEST X-RAYS ABX DENTAL EVALUATION OUTPATIENT FOR ORAL DEVICE DR MUSTAFA Problem List - Problems (1) Acute respiratory failure Code(s): J96.00 - ACUTE RESPIRATORY FAILURE, UNSP W HYPOXIA OR HYPERCAPNIA (2) Atrial fibrillation with rapid ventricular response Code(s): I48.91 - UNSPECIFIED ATRIAL FIBRILLATION (3) Atrial flutter with rapid ventricular response Code(s): I48.92 - UNSPECIFIED ATRIAL FLUTTER (4) Diabetes Code(s): E11.9 - TYPE 2 DIABETES MELLITUS WITHOUT COMPLICATIONS (5) H/O heart artery stent Code(s): Z95.5 - PRESENCE OF CORONARY ANGIOPLASTY IMPLANT AND GRAFT (6) HTN (hypertension) Code(s): I10 - ESSENTIAL (PRIMARY) HYPERTENSION (7) Hyperlipidemia Code(s): E78.5 - HYPERLIPIDEMIA, UNSPECIFIED (8) Obesity Code(s): E66.9 - OBESITY, UNSPECIFIED (9) Pleural effusion Code(s): J90 - PLEURAL EFFUSION, NOT ELSEWHERE CLASSIFIED (10) Sleep apnea Code(s): G47.30 - SLEEP APNEA, UNSPECIFIED
[2018-11-17] MEDS: APIXABAN 5 MG TABLET PO SCH ×2 (14:32→23:20)
--- NOTE | 2018-11-17 16:32 | CONS ---
DATE OF CONSULTATION: 11/17/2018 PULMONARY CONSULTATION REFERRING PHYSICIAN: Diana Alegria M.D. HISTORY OF PRESENT ILLNESS: The patient is a 63-year-old white male with a past medical history of ASHD status post multiple stents, hypertension, hyperlipidemia, obstructive sleep apnea, not compliant with CPAP, admitted to [facility] with acute onset of shortness of breath. Patient states the past week or so he had not taken his blood pressure medications. On the day of admission, he took his BP medications in the morning. States he was sleeping and woke up about 6 o'clock acutely short of breath. He denies any chest pain, nausea, vomiting, diaphoresis. Denies hemoptysis. EMS was called. The patient was found to be in atrial flutter, rapid ventricular response. He was also noted to be in acute respiratory distress. He was administered nitroglycerin x3, aspirin by EMS and supplemental O2. In the ER, he was administered Cardizem,he was also started on BiPAP. He had a venous blood gas which revealed hypercapnia and hypoxemia. Patient had a CTA of the chest which revealed no evidence of pulmonary emboli but revealed small bilateral pleural effusion, consolidation of the right base likely secondary to atelectasis. He was placed on empiric antibiotic therapy and transferred to medical floor for management. Patient denies any fevers, chills. Denies any recent travel. There is no history of cough, hemoptysis, no chills. 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 He denies any history of respiratory failure in the past, or chronic ventilatory support. There is no history of previous weight loss or night sweats. PAST MEDICAL HISTORY: Again includes ASHD status post multiple stents, hypertension, hyperlipidemia, diabetes, as well as obstructive sleep apnea. REVIEW OF SYSTEMS: Positive orthopnea. Positive dyspnea on exertion. No chest pain. No palpitations. No nausea. No vomiting. No hemoptysis. No abdominal pain. CURRENT MEDICATIONS: Include Diovan, Zithromax, ceftriaxone, Eliquis, DuoNeb, Toprol, Crestor, NovoLog, Plavix. PHYSICAL EXAMINATION: GENERAL: The patient is a well-developed, well-nourished male, awake, alert, in no acute distress. He is afebrile. VITAL SIGNS: Blood pressure 147/88, respiratory rate 20, and O2 saturation is 95% on room air. HEENT: Normocephalic, atraumatic. NECK: Supple. HEART: Regular S1, S2. CHEST: Clear. ABDOMEN: Soft, bowel sounds positive. EXTREMITIES: No cyanosis, edema. LABORATORY: WBC 15.1, hemoglobin 14.2, hematocrit 42.4, with a platelet count of 216,000. Venous blood gas 7.27, pCO2 of 64, pO2 of 50, bicarbonate of 28, and a saturation of 79. Blood gas: pH of 7.36, pCO2 of 47, and pO2 of 157, and bicarbonate of 26, and a saturation of 99.5, that as on unknown quantity of oxygen. Chest CT: No PE. Positive mild congestion bilaterally. Small bilateral pleural effusions. Likely atelectasis at the bases. Echocardiogram reveals moderate to severe aortic stenosis, mildly dilated left atrium, and severe pulmonary hypertension with right ventricular systolic pressure of 60. IMPRESSION: 1. Acute hypercapnic, hypoxemic respiratory failure likely secondary to acute on chronic diastolic heart failure. 2. Atrial fibrillation/flutter with rapid ventricular response. 3. Arteriosclerotic heart disease status post multiple stents. 4. Aortic stenosis. 5. Possible pneumonia, although patient without fever, cough, or chest congestion. 6. Hypertension. 7. Severe pulmonary hypertension. 8. Obstructive sleep apnea. PLAN: Rate control as per cardiology. Eliquis. Supplemental O2. Followup chest x-rays. Empiric antibiotics. Dental evaluation as outpatient for oral device since patient noncompliant with CPAP. Further cardiac w/u as per cardiology MARIANO MUSTAFA M.D. [id number] MTDD
--- NOTE | 2018-11-17 20:30 | PN ---
Progress Note (short form) - Note Progress Note: Echo review Echo personally reviewed: agree w/ read ---> Normal LV/RV fx. Mild LVH. MV leaflets thickened, mildly calcified w/ mild MR. Severe PHTN. Aortic valve leaflets severely calcified with restricted leaflet excursion. Mean gradient of 31 mmHg, which may be underestimated due to suboptimal, non parallel alignment of CW doppler through the aortic valve. Based on review of prior studies, the Ao valve gradient has increased c/w progression of . PHTN likely on basis of obesity/TELLO, acute CHF and chronic left sided disease (). Once euvolemic, favor R/L heart cath for coronary assessment and further evaluation of severity.
--- NOTE | 2018-11-17 21:02 | PN ---
Progress Note, Physician - Current Medication List Current Medications: Active Medications Albuterol/Ipratropium (Duoneb -) 1 amp NEB Q6H PRN PRN Reason: SHORTNESS OF BREATH Apixaban (Eliquis -) 5 mg PO BID [facility] Last Admin: 11/17/18 14:32 Dose: 5 mg Clopidogrel Bisulfate (Plavix -) 75 mg PO DAILY [facility] Azithromycin 250 mg/ Dextrose 250 mls @ 250 mls/hr IVPB DAILY [facility] Last Admin: 11/17/18 10:02 Dose: 250 mls/hr Ceftriaxone Sodium 1 gm/ (Dextrose) 50 mls @ 100 mls/hr IVPB DAILY [facility]; Protocol Last Admin: 11/17/18 10:00 Dose: 100 mls/hr Insulin Aspart (Novolog Vial Sliding Scale -) 1 vial SQ ACHS [facility]; Protocol Last Admin: 11/17/18 18:56 Dose: 4 unit Metoprolol Succinate (Toprol Xl -) 25 mg PO DAILY [facility] Last Admin: 11/17/18 14:32 Dose: 25 mg Rosuvastatin Calcium (Crestor -) 40 mg PO HS [facility] Valsartan (Diovan -) 40 mg PO DAILY [facility] Last Admin: 11/17/18 09:54 Dose: 40 mg - Objective Vital Signs: Vital Signs Temperature 99.2 F 11/17/18 17:00 Pulse Rate 101 H 11/17/18 17:00 Respiratory Rate 20 11/17/18 17:00 Blood Pressure 148/77 11/17/18 17:00 O2 Sat by Pulse Oximetry (%) 95 11/17/18 20:40 Labs: CBC, BMP 11/17/18 05:57 11/17/18 06:15 INR, PTT INR 0.95 (0.83-1.09) 11/16/18 09:19
[2018-11-17] MEDS: ROSUVASTATIN CA 20 MG TABLET (FP) PO SCH (23:20)
[2018-11-18] MEDS: INSULIN SLIDING SCALE (NOVOLOG) 1 VIAL SQ SCH ×4 (06:09→22:23)
[2018-11-18 07:44] LABS: ALBUMIN 3.3 g/dl (3.4-5.0); BILIRUBIN,TOTAL 0.6 mg/dL (0.2-1); BLOOD UREA NITROGEN 10.7 mg/dL (7-18); CALCIUM 9.4 mg/dL (8.5-10.1); CREATININE 0.9 mg/dL (0.55-1.3); POTASSIUM 4.2 mmol/L (3.5-5.1); TOT PROT 6.6 g/dl (6.4-8.2)
[2018-11-18 08:18] LABS: BASO % 0.3 % (0-2.0); EOS % 1.3 % (0-4.5); HEMATOCRIT 40.1 % (35.4-49); HEMOGLOBIN 13.6 GM/dL (11.7-16.9); LYMPH % 22.4 % (8-40); MCH 29.6 pg (25.7-33.7); MCHC 33.8 g/dl (32.0-35.9); MEAN CELL VOLUME 87.6 fl (80-96); MEAN PLT VOLUME 9.7 fl (7.5-11.1); MONO % 10.4 % (3.8-10.2); NEUT % 65.6 % (42.8-82.8); PLATELET COUNT 206 K/MM3 (134-434); RBC 4.58 M/mm3 (4.00-5.60); RDW 13.8 % (11.9-15.9); WHITE BLOOD COUNT 9.3 K/mm3 (4.0-10.0)
[2018-11-18] MEDS: metoPROLOL SUCCINATE 25 MG TAB.SR.24H (FP) PO SCH ×3 (08:31→22:18)
[2018-11-18] MEDS: METOPROLOL TARTRATE 5 MG/5 ML VIAL IVPUSH PRN ×2 (08:32→17:26)
[2018-11-18] MEDS ORDERED: DEXTROSE 5%-WATER - 50 ML IVPB ONE (08:48)
[2018-11-18] MEDS ORDERED: cefTRIAXone SODIUM 1 GM VIAL ONE (08:48)
[2018-11-18] MEDS: VALSARTAN 40 MG TABLET (FP) PO SCH (09:00)
[2018-11-18] MEDS: CLOPIDOGREL BISULFATE 75 MG TABLET (FP) PO SCH (09:01)
[2018-11-18] MEDS: APIXABAN 5 MG TABLET PO SCH ×2 (09:01→22:17)
[2018-11-18] MEDS: CEFTRIAXONE 1 GM in DEXTROSE 5%-WATER - 50 ML IVPB SCH (09:01)
[2018-11-18] MEDS: AZITHROMYCIN IVPB 250 MG in DEXTROSE 5%-WATER - 250 ML IVPB SCH (09:31)
[2018-11-18] MEDS ORDERED: INSULIN (NOVOLOG) ASPART 100 UNITS/ML 10ML VIAL ONE ×2 (11:20→20:40)
--- NOTE | 2018-11-18 11:25 | PN ---
Progress Note, Physician History of Present Illness: pulmonary alert,no distress,-cp,-sob,-cough.pt remains in aflutter with rvr - Current Medication List Current Medications: Active Medications Albuterol/Ipratropium (Duoneb -) 1 amp NEB Q6H PRN PRN Reason: SHORTNESS OF BREATH Apixaban (Eliquis -) 5 mg PO BID [facility] Last Admin: 11/18/18 09:01 Dose: 5 mg Clopidogrel Bisulfate (Plavix -) 75 mg PO DAILY [facility] Last Admin: 11/18/18 09:01 Dose: 75 mg Azithromycin 250 mg/ Dextrose 250 mls @ 250 mls/hr IVPB DAILY [facility] Last Admin: 11/18/18 09:31 Dose: 250 mls/hr Ceftriaxone Sodium 1 gm/ (Dextrose) 50 mls @ 100 mls/hr IVPB DAILY [facility]; Protocol Last Admin: 11/18/18 09:01 Dose: 100 mls/hr Insulin Aspart (Novolog Vial Sliding Scale -) 1 vial SQ ACHS [facility]; Protocol Last Admin: 11/18/18 06:09 Dose: 2 unit Metoprolol Succinate (Toprol Xl -) 25 mg PO BID [facility] Last Admin: 11/18/18 09:00 Dose: Not Given Metoprolol Tartrate (Lopressor Injection -) 5 mg IVPUSH Q4H PRN PRN Reason: TACHYCARDIA Last Admin: 11/18/18 08:32 Dose: 5 mg Rosuvastatin Calcium (Crestor -) 40 mg PO HS [facility] Last Admin: 11/17/18 23:20 Dose: 40 mg Valsartan (Diovan -) 40 mg PO DAILY [facility] Last Admin: 11/18/18 09:00 Dose: 40 mg - Objective Vital Signs: Vital Signs Temperature 98.2 F 11/18/18 05:47 Pulse Rate 130 H 11/18/18 08:32 Respiratory Rate 20 11/18/18 05:47 Blood Pressure 106/74 11/18/18 08:32 O2 Sat by Pulse Oximetry (%) 95 11/17/18 20:40 Constitutional: Yes: Well Nourished, Calm Eyes: Yes: WNL HENT: Yes: WNL Neck: Yes: WNL Cardiovascular: Yes: Regular Rate and Rhythm, Tachycardia, S1, S2 Respiratory: Yes: CTA Bilaterally Gastrointestinal: Yes: Normal Bowel Sounds, Soft Extremities: Yes: WNL Edema: No Labs: CBC, BMP 11/18/18 06:41 11/18/18 06:41 INR, PTT INR 0.95 (0.83-1.09) 11/16/18 09:19 Problem List - Problems (1) Acute respiratory failure Code(s): J96.00 - ACUTE RESPIRATORY FAILURE, UNSP W HYPOXIA OR HYPERCAPNIA (2) Atrial fibrillation with rapid ventricular response Code(s): I48.91 - UNSPECIFIED ATRIAL FIBRILLATION (3) Atrial flutter with rapid ventricular response Code(s): I48.92 - UNSPECIFIED ATRIAL FLUTTER (4) Diabetes Code(s): E11.9 - TYPE 2 DIABETES MELLITUS WITHOUT COMPLICATIONS (5) H/O heart artery stent Code(s): Z95.5 - PRESENCE OF CORONARY ANGIOPLASTY IMPLANT AND GRAFT (6) HTN (hypertension) Code(s): I10 - ESSENTIAL (PRIMARY) HYPERTENSION (7) Hyperlipidemia Code(s): E78.5 - HYPERLIPIDEMIA, UNSPECIFIED (8) Obesity Code(s): E66.9 - OBESITY, UNSPECIFIED (9) Pleural effusion Code(s): J90 - PLEURAL EFFUSION, NOT ELSEWHERE CLASSIFIED (10) Sleep apnea Code(s): G47.30 - SLEEP APNEA, UNSPECIFIED Assessment/Plan IMP ACUTE HYPOXEMIC/HYPERCAPNEIC RESPIRATORY FAILURE INPROVED ACUTE ON CHRONIC DIASTOLIC HF AFLUTTER WITH RVR ASHD S/P STENTS HTN DM SEVERE PULMONARY HTN OSAS PLAN RATE CONTROL PER CARDIOLOGY O2 AC F/U CHEST X-RAYS ABX DENTAL EVALUATION OUTPATIENT FOR ORAL DEVICE CARDIAC CATH PORTABLE CHEST X-RAY TODAY DR MUSTAFA Problem List - Problems (1) Acute respiratory failure Code(s): J96.00 - ACUTE RESPIRATORY FAILURE, UNSP W HYPOXIA OR HYPERCAPNIA (2) Atrial fibrillation with rapid ventricular response Code(s): I48.91 - UNSPECIFIED ATRIAL FIBRILLATION (3) Atrial flutter with rapid ventricular response Code(s): I48.92 - UNSPECIFIED ATRIAL FLUTTER (4) Diabetes Code(s): E11.9 - TYPE 2 DIABETES MELLITUS WITHOUT COMPLICATIONS (5) H/O heart artery stent Code(s): Z95.5 - PRESENCE OF CORONARY ANGIOPLASTY IMPLANT AND GRAFT (6) HTN (hypertension) Code(s): I10 - ESSENTIAL (PRIMARY) HYPERTENSION (7) Hyperlipidemia Code(s): E78.5 - HYPERLIPIDEMIA, UNSPECIFIED (8) Obesity Code(s): E66.9 - OBESITY, UNSPECIFIED (9) Pleural effusion Code(s): J90 - PLEURAL EFFUSION, NOT ELSEWHERE CLASSIFIED (10) Sleep apnea Code(s): G47.30 - SLEEP APNEA, UNSPECIFIED
--- NOTE | 2018-11-18 11:31 | PN ---
Progress Note (short form) - Note Progress Note: s: no chest pain, palps, dizziness, dyspnea tele: atrial flutter with RVR 160s ->sinus Vital Signs Period Temp Pulse Resp BP Sys/Lama Pulse Ox Last 24 Hr 98.2 F-99.2 F 82-130 20-20 106-149/60-88 95-95 Constitutional: Yes: Well Nourished, No Distress, Calm Eyes: Yes: Conjunctiva Clear, EOM Intact HENT: Yes: Atraumatic, Normocephalic Neck: Yes: Supple, Trachea Midline Respiratory: Yes: WNL, Regular, CTA Bilaterally Gastrointestinal: Yes: soft, nt nd, Normal Bowel Sounds Cardiovascular: Yes: Regular Rate and Rhythm, nl s1 s2 JVD: No Carotid Bruit: No PMI: Non-Displaced Murmur: Yes: Systolic Murmur, Grade 3 Edema: No Peripheral Pulses WNL: Yes Integumentary: no jaundice, diaphoresis Neurological: Yes: Alert, Oriented Psychiatric: not agitated Prior Cardiac Procedures: PTCA with Stent tele: aflutter 160s -> sinus EKG: aflutter rate 159 bpm Atrial flutter with RVR - in aflutter this AM with RVR - increase metoprolol succinate to 50 mg BID - echo nl LV/RV with mod to severe - start metoprolol succinate 25 mg daily - AC indicated, start eliquis 5 mg BID, will dc aspirin and continue plavix (on DAPT as outpatient, last stent 10+ years ago) Aortic stenosis - mod to severe - may be underestimated - per Dr. Lerner: when stable plan for transfer to [facility] for LHC/RHC and evaluation of CAD - cont plavix, statin, dc aspirin possible PNA - manage per primary DM - manage per primary HTN - cont current meds HTN - bp stable, cont current meds
[2018-11-18] MEDS ORDERED: metoPROLOL SUCCINATE 25 MG TAB.SR.24H (FP) PO ONE ×2 (12:00→17:04)
--- NOTE | 2018-11-18 12:25 | EKG ---
Test Reason : Blood Pressure : / mmHG Vent. Rate : 077 BPM Atrial Rate : 077 BPM P-R Int : 166 ms QRS Dur : 086 ms QT Int : 384 ms P-R-T Axes : 013 -12 020 degrees QTc Int : 434 ms SINUS RHYTHM WITH MARKED SINUS ARRHYTHMIA OTHERWISE NORMAL ECG WHEN COMPARED WITH ECG OF 16-NOV-2018 20:28, PREMATURE VENTRICULAR COMPLEXES ARE NO LONGER PRESENT Confirmed by HUSSAIN RENTERIA, CHRIS ([id number]) on 11/18/2018 12:25:18 PM Referred By: TETE COOPER DRVTLM Confirmed By:CHRIS NIXON MD
--- NOTE | 2018-11-18 21:29 | PN ---
Progress Note, Physician - Current Medication List Current Medications: Active Medications Albuterol/Ipratropium (Duoneb -) 1 amp NEB Q6H PRN PRN Reason: SHORTNESS OF BREATH Apixaban (Eliquis -) 5 mg PO BID [facility] Last Admin: 11/18/18 09:01 Dose: 5 mg Clopidogrel Bisulfate (Plavix -) 75 mg PO DAILY [facility] Last Admin: 11/18/18 09:01 Dose: 75 mg Azithromycin 250 mg/ Dextrose 250 mls @ 250 mls/hr IVPB DAILY [facility] Last Admin: 11/18/18 09:31 Dose: 250 mls/hr Ceftriaxone Sodium 1 gm/ (Dextrose) 50 mls @ 100 mls/hr IVPB DAILY [facility]; Protocol Last Admin: 11/18/18 09:01 Dose: 100 mls/hr Insulin Aspart (Novolog Vial Sliding Scale -) 1 vial SQ ACHS [facility]; Protocol Last Admin: 11/18/18 17:20 Dose: Not Given Metoprolol Succinate (Toprol Xl -) 75 mg PO BID [facility] Metoprolol Tartrate (Lopressor Injection -) 5 mg IVPUSH Q4H PRN PRN Reason: TACHYCARDIA Last Admin: 11/18/18 17:26 Dose: 5 mg Rosuvastatin Calcium (Crestor -) 40 mg PO HS [facility] Last Admin: 11/17/18 23:20 Dose: 40 mg Valsartan (Diovan -) 40 mg PO DAILY [facility] Last Admin: 11/18/18 09:00 Dose: 40 mg - Objective Vital Signs: Vital Signs Temperature 98.8 F 11/18/18 17:00 Pulse Rate 128 H 11/18/18 17:26 Respiratory Rate 20 11/18/18 21:00 Blood Pressure 146/60 11/18/18 17:26 O2 Sat by Pulse Oximetry (%) 95 11/18/18 21:00 Labs: CBC, BMP 11/18/18 06:41 11/18/18 06:41 INR, PTT INR 0.95 (0.83-1.09) 11/16/18 09:19
[2018-11-18] MEDS: ROSUVASTATIN CA 20 MG TABLET (FP) PO SCH (22:17)
[2018-11-19 05:42] VITALS: TEMP 98.4
[2018-11-19] MEDS: INSULIN SLIDING SCALE (NOVOLOG) 1 VIAL SQ SCH (06:20)
[2018-11-19] MEDS ORDERED: cefTRIAXone SODIUM 1 GM VIAL ONE (09:58)
[2018-11-19] MEDS ORDERED: DEXTROSE 5%-WATER - 50 ML IVPB ONE (09:58)
[2018-11-19] MEDS: CEFTRIAXONE 1 GM in DEXTROSE 5%-WATER - 50 ML IVPB SCH (10:02)
[2018-11-19] MEDS: AZITHROMYCIN IVPB 250 MG in DEXTROSE 5%-WATER - 250 ML IVPB SCH (10:02)
[2018-11-19] MEDS: VALSARTAN 40 MG TABLET (FP) PO SCH (10:03)
[2018-11-19] MEDS: metoPROLOL SUCCINATE 25 MG TAB.SR.24H (FP) PO SCH (10:03)
[2018-11-19] MEDS: APIXABAN 5 MG TABLET PO SCH (10:03)
[2018-11-19] MEDS: CLOPIDOGREL BISULFATE 75 MG TABLET (FP) PO SCH (10:03)
[2018-11-19 10:57] VITALS: BP 150/85; PULSE 76
--- NOTE | 2018-11-19 10:58 | PN ---
Progress Note (short form) - Note Progress Note: s: no chest pain, palps, dizziness, dyspnea tele: atrial flutter with RVR>sinus Vital Signs Period Temp Pulse Resp BP Sys/Lama Pulse Ox Last 24 Hr 98 F-98.8 F 73-129 18-21 113-150/50-92 95-98 Constitutional: Yes: Well Nourished, No Distress, Calm Eyes: Yes: Conjunctiva Clear Neck: Yes: Supple, Trachea Midline Respiratory: Yes: WNL, Regular, CTA Bilaterally Gastrointestinal: Yes: soft, nt nd, Normal Bowel Sounds Cardiovascular: Yes: Regular Rate and Rhythm, nl s1 s2 JVD: No Murmur: Yes: Systolic Murmur, Grade 3 Edema: No Peripheral Pulses WNL: Yes Integumentary: no jaundice, diaphoresis Neurological: Yes: Alert, Oriented Psychiatric: not agitated Current Medications Generic Name Dose Route Start Last Admin Trade Name Freq PRN Reason Stop Dose Admin Albuterol/Ipratropium 1 amp 11/16/18 16:01 Duoneb - NEB Q6H PRN SHORTNESS OF BREATH Apixaban 5 mg 11/17/18 13:00 11/19/18 10:03 Eliquis - PO 5 mg BID [facility] Administration Clopidogrel Bisulfate 75 mg 11/18/18 10:00 11/19/18 10:03 Plavix - PO 75 mg DAILY [facility] Administration Azithromycin 250 mg/ Dextrose 250 mls @ 250 mls/hr 11/17/18 10:00 11/19/18 10 :02 IVPB 250 mls/hr DAILY [facility] Administration Ceftriaxone Sodium 1 gm/ 50 mls @ 100 mls/hr 11/17/18 10:00 11/19/18 10:02 Dextrose IVPB 100 mls/hr DAILY [facility] Administration Protocol Insulin Aspart 1 vial 11/16/18 16:30 11/19/18 06:20 Novolog Vial Sliding Scale - SQ 2 unit ACHS [facility] Administration Protocol Metoprolol Succinate 75 mg 11/18/18 17:05 11/19/18 10:03 Toprol Xl - PO 75 mg BID [facility] Administration Metoprolol Tartrate 5 mg 11/18/18 08:22 11/18/18 17:26 Lopressor Injection - IVPUSH 5 mg Q4H PRN Administration TACHYCARDIA Rosuvastatin Calcium 40 mg 11/17/18 22:00 11/18/18 22:17 Crestor - PO 40 mg HS [facility] Administration Valsartan 40 mg 11/17/18 10:00 11/19/18 10:03 Diovan - PO 40 mg DAILY [facility] Administration CBC, BMP 11/18/18 06:41 11/18/18 06:41 a/p: Atrial flutter with RVR - in sr. cont bb. - echo nl LV/RV with mod to severe - AC indicated, start eliquis 5 mg BID, will dc aspirin and continue plavix (on DAPT as outpatient, last stent 10+ years ago) Aortic stenosis - mod to severe - may be underestimated - per Dr. Lerner: plan for transfer to [facility] for LHC/RHC and evaluation of , to be transferred today CAD - cont plavix, statin, dc'd aspirin possible PNA - manage per primary DM - manage per primary HTN - cont current meds HTN - bp stable, cont current meds
== END 2018-11-19 11:07 | disposition short-term general hospital (02) | DRG 193 ==
LOC: JER 08:58 → JERBED 12:26 → J4W 22:02
PROVIDERS: ADMIT Internal Medicine; ATTEND Internal Medicine
PROC: 5A09357 Assistance with Respiratory Ventilation, Less than 24 Consecutive Hours, Continuous Positive Airway Pressure (ICD-10-PCS; principal; 2018-11-16)
DX: J18.9 Pneumonia, unspecified organism (principal); J96.01 Acute respiratory failure with hypoxia; J96.02 Acute respiratory failure with hypercapnia; I50.33 Acute on chronic diastolic (congestive) heart failure; I48.92 Unspecified atrial flutter; I35.0 Nonrheumatic aortic (valve) stenosis; I11.0 Hypertensive heart disease with heart failure; I48.91 Unspecified atrial fibrillation; I27.20 Pulmonary hypertension, unspecified; I95.9 Hypotension, unspecified; I44.30 Unspecified atrioventricular block; G47.33 Obstructive sleep apnea (adult) (pediatric); E11.9 Type 2 diabetes mellitus without complications; Z79.84 Long term (current) use of oral hypoglycemic drugs; Z79.4 Long term (current) use of insulin; E66.9 Obesity, unspecified; Z68.35 Body mass index [BMI] 35.0-35.9, adult; I25.10 Atherosclerotic heart disease of native coronary artery without angina pectoris; Z95.5 Presence of coronary angioplasty implant and graft; E78.5 Hyperlipidemia, unspecified; E78.2 Mixed hyperlipidemia; Z87.891 Personal history of nicotine dependence
CPT/HCPCS: 36415; 36600; 71045-TC-FY; 71275-TC; 80053; 80061; 82375; 82550; 82553; 82803; 82962; 83036; 83050; 83605; 83721; 83735; 83880; 84443; 84484; 85025; 85610; 85730; 87040; 93005; 93010; 93306-TC; 94660; 99285-25; J0131; J1644; J7030